=== PATIENT | female | born 1970 | race Caucasian/White ===

== ENCOUNTER 2017-07-06 17:02 | Inpatient (IN) | payer SELFPAY ==
[~2017-07-06] VITALS: Ht 157.5 cm; Wt 66.2 kg
[2017-07-06] MEDS ORDERED: SODIUM CHLORIDE 0.9% 1,000 ML IV ONE (19:46)
[2017-07-06] MEDS ORDERED: LABETALOL HCL 20MG/4ML CARPUJECT IV ONE (20:00)
[2017-07-06] MEDS ORDERED: ASPIRIN 81MG TABLET PO ONE (20:00)
[2017-07-06 20:08] LABS: BASOPHILS % 0.3 % (0.0-2.0); EOSINOPHILS % 0.4 % (0.0-5.0); HEMATOCRIT. 31.9 % (36.0-48.0); LYMPHOCYTES % 22.3 % (20.0-50.0); MEAN CORPUSCULAR HEMOGLOBIN 29.9 pg (28.0-32.0); MEAN PLATELET VOLUME 7.8 fl (7.4-10.4); PLATELET 411 x1000/uL (130-400); RED BLOOD CELL COUNT 3.67 mill/uL (4.2-5.4); RED CELL DISTRIBUTION WIDTH 13.5 % (11.6-14.6)
[2017-07-06 20:14] LABS: D-DIMER 0.5 mg/L FEU (<0.50); PROTHROMBIN TIME 10.3 sec (9.4-11.6)
[2017-07-06 20:15] LABS: CLARITY URINE CLEAR (CLEAR); COLOR URINE YELLOW (YELLOW); KETONES URINE NEGATIVE (NEGATIVE); LEUKOCYTE ESTERASE URINE TRACE (NEGATIVE); NITRITE URINE NEGATIVE (NEGATIVE); OCCULT BLOOD URINE 2+ (NEGATIVE); PH URINE 6.5 (4.5-8.0); PROTEIN URINE NEGATIVE (NEGATIVE); SPECIFIC GRAVITY URINE 1.008 (1.005-1.030); UROBILINOGEN URINE 0.2 E.U./dL (0.2-1.0)
[2017-07-06 20:22] LABS: CARBON DIOXIDE 25 mEq/L (21-32); CHLORIDE 106 mEq/L (98-107); ETHANOL BLOOD < 10 mg/dL; TROPONIN I < 0.02 ng/mL (0.00-0.04)
[2017-07-06 20:41] LABS: *AMPHETAMINES SCREEN URINE NEGATIVE (NEGATIVE); *BARBITURATES SCREEN URINE NEGATIVE (NEGATIVE); *BENZODIAZEPINES SCREEN URINE NEGATIVE (NEGATIVE); *COCAINE SCREEN URINE NEGATIVE (NEGATIVE); CANNABINOID URINE SCREEN NEGATIVE (NEGATIVE); METHADONE URINE SCREEN NEGATIVE (NEGATIVE); OPIATES URINE SCREEN NEGATIVE (NEGATIVE); PHENCYCLIDINE URINE SCREEN NEGATIVE (NEGATIVE)
[2017-07-06] MEDS ORDERED: LABETALOL 5MG/ML SYR 20 MG/4 ML SYRINGE IV NR ×2 (20:45→21:45)
[2017-07-06] MEDS ORDERED: ZOLPIDEM TARTRATE 5MG TABLET PO PRN (21:00)
[2017-07-06] MEDS ORDERED: CEFTRIAXONE 1 G PREMIX 50 ML IV NR (21:30)
[2017-07-06] MEDS ORDERED: ACETAMINOPHEN 325MG TABLET PO PRN (22:00)
[2017-07-06] MEDS ORDERED: KETOROLAC 15MG/ML VIAL IV PRN (22:00)
[2017-07-06] MEDS ORDERED: MAGNESIUM/ALUMINUM HYDROXIDE/SIMETHICONE 30ML UDC PO PRN (22:00)
[2017-07-06] MEDS ORDERED: ONDANSETRON HCL 4MG/2ML VIAL IV PRN (22:00)
[2017-07-06] MEDS ORDERED: DIPHENHYDRAMINE 50MG/ML VIAL IV PRN (22:00)
[2017-07-06] MEDS ORDERED: NA PHOS,M-B/NA PHOS,DI-BA ENEMA 118ML PR PRN (22:00)
[2017-07-06] MEDS ORDERED: IPRATROPIUM/ALBUTEROL 0.5-3(2.5)MG/3ML NEB INH PRN (22:00)
[2017-07-06] MEDS ORDERED: NITROGLYCERIN 0.4MG TABLET SL SL PRN (22:00)
[2017-07-06] MEDS ORDERED: GUAIFENESIN 200MG/10ML SUGAR FREE UDC PO PRN (22:00)
[2017-07-06] MEDS ORDERED: DOCUSATE SODIUM 100MG CAPSULE PO PRN (22:00)
[2017-07-06] MEDS ORDERED: CLONIDINE 0.1MG TABLET PO PRN (22:00)
[2017-07-06] MEDS ORDERED: LORAZEPAM 0.5MG TABLET PO PRN (22:00)
[2017-07-06 23:22] LABS: CREATINE KINASE 60 IU/L (26-192); CREATINE KINASE MB FRACTION < 0.5 ng/mL (0.5-3.6); HDL CHOLESTEROL 43 mg/dL (40-59); LDL CHOLESTEROL 123 mg/dL (5-100)
[2017-07-07] MEDS ORDERED: NA PHOS,M-B/NA PHOS,DI-BA ENEMA 118ML PR PRN (06:00)
[2017-07-07 06:35] LABS: CREATINE KINASE 50 IU/L (26-192); CREATINE KINASE MB FRACTION < 0.5 ng/mL (0.5-3.6); TROPONIN I < 0.02 ng/mL (0.00-0.04)
[2017-07-07] MEDS ORDERED: FAMOTIDINE 20MG/2ML VIAL IV SCH (09:00)
[2017-07-07] MEDS ORDERED: METOPROLOL TARTRATE 25MG TABLET PO SCH (09:00)
[2017-07-07] MEDS ORDERED: ASPIRIN 325MG EC TABLET PO SCH (09:00)
[2017-07-07] MEDS ORDERED: ENOXAPARIN 40MG/0.4ML SYR SUBCUT SCH (09:14)
[2017-07-07 10:00] VITALS: BP 130/69
[2017-07-07 13:11] VITALS: BP 118/70
== END 2017-07-07 14:35 | disposition home or self-care (01) | DRG 203 ==
LOC: ER 17:43 → 8WST 21:41 → EDBEDREQ 22:01 → ENRESERV 07-07 06:53
PROVIDERS: ADMIT Internal Medicine; ATTEND Internal Medicine
DX: R07.89 Other chest pain (principal); I10 Essential (primary) hypertension; R00.2 Palpitations
CPT/HCPCS: 36415; 70450; 71045; 80053; 80061; 80305; 81001; 82550; 82553; 83036; 83605; 83690; 83735; 83880; 84484; 85025; 85379; 85610; 87086; 87804; 93005; 93970; 96361; 96365; 96375; 99291; G0482; J0696; J1650; J1885; J3490; J7030

== ENCOUNTER 2017-08-07 18:06 | Emergency (ER) | payer SELFPAY ==
[~2017-08-07] VITALS: Ht 157.5 cm; Wt 68.0 kg
[2017-08-08] MEDS ORDERED: SODIUM CHLORIDE 0.9% 1,000 ML IV ONE (00:17)
[2017-08-08] MEDS ORDERED: MECLIZINE 25MG TABLET PO ONE ×2 (00:30→05:00)
[2017-08-08] MEDS ORDERED: ASPIRIN 81MG TABLET PO ONE (00:30)
[2017-08-08 00:41] LABS: BASOPHILS % 0.3 % (0.0-2.0); HEMATOCRIT. 30.1 % (36.0-48.0); HEMOGLOBIN. 10.1 g/dL (12.0-16.0); LYMPHOCYTES % 30.4 % (20.0-50.0); MEAN CORPUSCULAR HEMOGLOBIN 28.8 pg (28.0-32.0); MEAN CORPUSCULAR VOLUME 85.7 fL (81.0-99.0); MEAN PLATELET VOLUME 7.5 fl (7.4-10.4); MONOCYTES % 5.5 % (2.0-8.0); NEUTROPHILS % 61.8 % (40.0-76.0); PLATELET 350 x1000/uL (130-400); RED BLOOD CELL COUNT 3.51 mill/uL (4.2-5.4); RED CELL DISTRIBUTION WIDTH 13.2 % (11.6-14.6)
[2017-08-08 00:48] LABS: PROTHROMBIN TIME 10.7 sec (9.4-11.6)
[2017-08-08 00:53] LABS: CHLORIDE 100 mEq/L (98-107)
[2017-08-08 00:58] LABS: TROPONIN I < 0.02 ng/mL (0.00-0.04)
[2017-08-08 01:48] LABS: CLARITY URINE CLEAR (CLEAR); COLOR URINE YELLOW (YELLOW); KETONES URINE NEGATIVE (NEGATIVE); LEUKOCYTE ESTERASE URINE 3+ (NEGATIVE); NITRITE URINE NEGATIVE (NEGATIVE); OCCULT BLOOD URINE 2+ (NEGATIVE); PH URINE 6.5 (4.5-8.0); PROTEIN URINE NEGATIVE (NEGATIVE); SPECIFIC GRAVITY URINE 1.006 (1.005-1.030); UROBILINOGEN URINE 0.2 E.U./dL (0.2-1.0)
[2017-08-08] MEDS ORDERED: CEFTRIAXONE 1 G PREMIX 50 ML IV NR (02:00)
[2017-08-08 08:02] VITALS: BP 126/69
== END 2017-08-08 08:07 | disposition home or self-care (01) ==
LOC: ER 18:06 → CANBEDREQ 08-08 13:46
DX: R42 Dizziness and giddiness (principal); I10 Essential (primary) hypertension; R07.9 Chest pain, unspecified; E78.00 Pure hypercholesterolemia, unspecified; F41.9 Anxiety disorder, unspecified; Z98.890 Other specified postprocedural states
CPT/HCPCS: 36415; 71045; 80053; 81003; 81025; 83880; 84484; 85025; 85610; 87077; 87086; 87186; 93005; 96361; 96365; 99285; J0696; J7030; J8597

== ENCOUNTER 2017-10-18 06:31 | Emergency (ER) | payer SELFPAY ==
[~2017-10-18] VITALS: Ht 157.5 cm; Wt 71.0 kg
[2017-10-18] MEDS ORDERED: ONDANSETRON HCL 4MG/2ML VIAL IV STA (07:11)
[2017-10-18] MEDS ORDERED: ASPIRIN 81MG TABLET PO STA (07:11)
[2017-10-18] MEDS ORDERED: MECLIZINE 25MG TABLET PO ONE (07:15)
[2017-10-18 07:30] LABS: BASOPHILS % 0.4 % (0.0-2.0); EOSINOPHILS % 2.2 % (0.0-5.0); HEMATOCRIT. 31.4 % (36.0-48.0); HEMOGLOBIN. 10.9 g/dL (12.0-16.0); LYMPHOCYTES % 28.3 % (20.0-50.0); MEAN CORPUSCULAR HEMOGLOBIN 30.1 pg (28.0-32.0); MEAN CORPUSCULAR VOLUME 86.5 fL (81.0-99.0); MEAN PLATELET VOLUME 7.7 fl (7.4-10.4); MONOCYTES % 4.9 % (2.0-8.0); NEUTROPHILS % 64.2 % (40.0-76.0); PLATELET 343 x1000/uL (130-400); RED BLOOD CELL COUNT 3.63 mill/uL (4.2-5.4)
[2017-10-18 07:35] LABS: CHLORIDE 104 mEq/L (98-107)
[2017-10-18 08:26] LABS: D-DIMER 0.33 mg/L FEU (<0.50); PROTHROMBIN TIME 10.2 sec (9.4-11.6)
[2017-10-18 09:28] LABS: HCG SCREEN NEGATIVE
[2017-10-18 10:51] VITALS: BP 103/71
== END 2017-10-18 10:53 | disposition home or self-care (01) ==
LOC: ER 06:31
DX: R00.2 Palpitations (principal); R07.9 Chest pain, unspecified; I10 Essential (primary) hypertension
CPT/HCPCS: 36415; 70450; 71045; 80053; 80061; 83690; 83880; 84443; 84484; 84703; 85025; 85379; 85610; 85730; 93005; 96374; 99285; J2405; Z7610; J8597